=== PATIENT | female | born 1950 | race Caucasian/White ===

== ENCOUNTER 2017-04-27 07:23 | Emergency (ER) | payer MEDICARE, MEDICAID ==
[2017-04-27 07:55] LABS: BASOPHILS 0.3 % (0-2); EOSINOPHILS 0.1 % (0-7); HEMATOCRIT 39.8 % (36.0-48.0); HEMOGLOBIN 13.9 g/dL (12-16); IMMATURE GRANULOCYTES 0.3 % (0-5); LYMPHOCYTES 26.3 % (15-50); MCH 30.3 pg (26.0-34.0); MCHC 34.9 g/dL (31.0-37.0); MCV 86.7 fL (80.0-100.0); MONOCYTES 8.4 % (2-11); NEUTROPHILS 64.6 % (40-80); PLATELET COUNT 405 10x3/uL (130-400); RBC 4.59 10x6/uL (4.00-5.40); RDW 13.9 % (11.5-14.5); WBC 7.2 10x3/uL (4.8-10.8)
[2017-04-27 08:15] LABS: ALBUMIN 3.2 g/dL (3.4-5.0); ALKALINE PHOSPHATASE 190 U/L (46-116); ALT (SGPT) 42 U/L (10-68); BILIRUBIN - TOTAL 0.24 mg/dL (0.2-1.3); CALC OSMOLALITY 265 mosm/kg (275-300); CALCIUM 9.5 mg/dL (8.5-10.1); CARBON DIOXIDE 27.3 mmol/L (21.0-32.0); CHLORIDE - SERUM 96 mmol/L (98-107); CREATININE - SERUM 0.6 mg/dL (0.6-1.3); GLUCOSE 108 mg/dL (74-106); LIPASE 107 U/L (73-393); POTASSIUM - SERUM 3.3 mmol/L (3.5-5.1); PROTEIN - SERUM 8.1 g/dL (6.4-8.2); SODIUM 134 mmol/L (136-145); UREA NITROGEN 4 mg/dL (7-18); eGFR NON AFRICAN AMERICAN > 90 mL/min (90-120)
[2017-04-27 08:56] LABS: APPEARANCE CLEAR (CLEAR); BILIRUBIN NEGATIVE (NEGATIVE); COLOR YELLOW (YELLOW); GLUCOSE NEGATIVE (NEGATIVE); KETONE NEGATIVE (NEGATIVE); NITRITE NEGATIVE (NEGATIVE); PROTEIN NEGATIVE (NEGATIVE); SPECIFIC GRAVITY 1.005 (1.005-1.020); UROBILINOGEN NORMAL (NORMAL)
== END 2017-04-27 09:36 | disposition home or self-care (01) ==
LOC: D.ER 07:23
PROVIDERS: Emergency Medicine
DX: K80.50 Calculus of bile duct without cholangitis or cholecystitis without obstruction (principal); F17.200 Nicotine dependence, unspecified, uncomplicated

== ENCOUNTER → 2018-03-30 10:44 | Outpatient (CLI) | payer MEDICARE, MEDICAID ==
[~2018-03-30 10:44] MED LIST: CRESTOR5 MG; CYCLOBENZAPRINE5 MG PO; ELIQUIS2.5 MG PO; KEFLEX500 MG PO; KLONOPIN1 MG PO; MERIBIN5 MG PO; OXYCODONE HCL5 M1 PO; PEPCID40 MG PO; PROZAC40 MG PO; SYNTHROID75 MCG PO; VISTARIL50 MG PO; VITAMIN B-122500 MCG PO
[2018-04-16 10:47] VITALS: BMI 23.0
== END | disposition home or self-care (01) ==
LOC: D.US 10:44
DX: R10.9 Unspecified abdominal pain (principal)

== ENCOUNTER 2018-04-15 01:09 | Inpatient (IN) | payer MEDICARE, MEDICAID ==
[~2018-04-15] VITALS: Ht 160 cm; Wt 59.0 kg
--- NOTE | ~2018-04-15 | MORECARE ---
CASE MANAGEMENT DISCHARGE SUMMARY PATIENT: MATEO OLMEDO UNIT: [id number] ADM DATE: 04/16/18 AGE: 67 : 51 SEX: F ROOM/BED: D.2202 AUTHOR: ALAN BUSBY PHYSICIAN: REFERRING PHYSICIAN: DANILO CLARKE DO DATE OF SERVICE: 04/17/18 Discharge Plan Patient Name: MATEO OLMEDO Facility: [facility]:[place] : 1950 Planned Disposition: Home with Home Health Anticipated Discharge Date: Discharge Date: Expected LOS: Initial Reviewer: [email or web address] Initial Review Date: 04/15/2018 Generated: 04/17/18 1:25 pm Comments DCP- Discharge Planning Updated by [email or web address]: Melany Albrecht on 04/17/18 11:[address] ZACHARY WITH [facility] CALLED AND STATED THAT THEY ARE OUT OF NETWORK, DME ORDER SENT TO [facility]. WILL CONTINUE TO FOLLOW AND ASSIST WITH DC PLANNING DCP- Discharge Planning Updated by [email or web address]: Melany Albrecht on 04/17/18 8:[address] Patient Name: MATEO OLMEDO Admission Status: ER Accout number: [id number] Admission Date: 04-16-2018 : 1950 Admission Diagnosis: Attending: DANILO CLARKE Current LOS: 1 Anticipated DC Date: Planned Disposition: Home with Home Health Primary Insurance: [facility] MEDICARE SOLUTIONS Discharge Planning Comments: CM met with patient to assess discharge planning needs. Patient lives independently with her Nico where she plans to return today. Her friend Mateo has given her a walker and bedside commode. I will order her a wheelchair (per PT) prior to DC. There are 5 steps to enter in her home. She stated that she has plenty of help if needed, but would like home health, [facility] with [place] and referral sent to them. Nico will be her public transit bus driver home. CM will continue to follow and assist with DC planning Pot Room Tapper: Melany Albrecht DCPIA - Discharge Planning Initial Assessment Updated by [email or web address]: Melany Albrecht on 04/17/18 9:50 am * Is the patient Alert and Oriented? Yes * How many steps to enter\exit or inside your home? * PCP DELEON * Pharmacy BUDGET * Preadmission Environment Home with Family * ADLs Independent * Equipment Bedside Commode Rolling Walker * List name and contact numbers for known caregivers / representatives who currently or will assist patient after discharge: NICO () [phone] * Verbal permission to speak to the caregivers and representatives has been obtained from the patient. N/A * Community resources currently utilized None * Additional services required to return to the preadmission environment? Yes * Can the patient safely return to the preadmission environment? Yes * Has this patient been hospitalized within the prior 30 days at any hospital? No External Providers External Provider: [facility] Next Contact Date: Service Request Date: Service Type: Resolution: Reviewer: Comments: Last DP export: 04/17/18 10:32 a Patient Name: MATEO OLMEDO Page [phone] at 1225 All edits/amendments must be made on the electronic document DICTATION DATE: 04/17/18 1224 REHAB AID: CARRIE 04/17/18 1224 RPT#: [id number] DC DATE: STATUS: ADM IN [facility] [address] [place] [address] END OF REPORT
--- NOTE | ~2018-04-15 | OP ---
PATIENT NAME: MATEO YARBROUGH MEDICAL RECORD: [id number] :[birth year] LOCATION:D.MS [id number] ADMISSION DATE:04/15/18 SURGEON: DANILO CLARKE DO DATE OF OPERATION: 04/15/2018 PREOPERATIVE DIAGNOSIS: Right tibial shaft and fibula fracture, closed. POSTOPERATIVE DIAGNOSES: Right tibial shaft and fibula fracture, closed. SURGEON: Danilo Clarke DO INDICATIONS: Ms. Yarbrough is a 67-year-old female who fell over a coffee table last night where she fractured her tibia and her fibula. She was taken to the ER and seen to have that fracture. She does smoke. I informed her that due to her smoking that she is at risk for nonunion for this fracture and she voiced understanding that she should quit smoking. Also informed of the risks and benefits of procedure including damage to nerves and vessels, need for further surgery, the infection, nonunion, malunion, extended amount of pain. She is okay of those risks and signed the consent. DESCRIPTION OF PROCEDURE: The patient was taken to the operative suite, laid in the supine position. The right lower extremity was prepped and draped in sterile fashion. Timeout was performed, everyone was in agreement of the correct side, site, and patient. The patient received 2 grams Ancef preoperatively. Once that was done, the Esmarch was used to exsanguinate the right lower extremity. The tourniquet was inflated to 350 mmHg and was up for 68 minutes throughout the procedure. The Esmarch was then removed and the patellar tendon been marked out. Incision began just below the patella over the patellar tendon is centered and through the skin with a 15 blade, then careful dissection was made down through the peritenon and the patellar tendon. Some of the fat pad was then removed and a starting point was gained just medial to the lateral tibial spine on AP and lateral and a guide pin was put and the starting reamer was used. The guidepin was then put down as the reduction was held and measured to be a 300 mm nail. Reaming them began at 8 and went up to 10-1/2, used a 9 mm nail. The nail was then inserted and the proximal static screws were placed through the jig and then distally the perfect circles were done; 1 AP screw and one medial to lateral screw were done. The proximal screws were placed lateral and medial. Once that was completed, the fibula was tested. The ankle was tested and externally rotated and no large displacement was seen of the fibula knowing the fracture being fixed well with a nail, no need to fix the fibula and it would cause further risk of nonunion, the tourniquet was then let down and pressure was held on the spots of bleeding. The knee was then irrigated with approximately 450 mL of normal saline and the patellar tendon was closed with 0 Vicryl in a running locking stitch and then the peritenon was closed with 2-0 Vicryl in a irpxkc-ao-zqjqv fashion and the skin was closed with 2-0 Vicryl and inverted fashion 4-0 Monocryl and then a horizontal mattress fashion. The incision for the proximal screws was closed with 2-0 Vicryl in an inverted interrupted fashion after it had been irrigated and then 4-0 Monocryl in a horizontal mattress fashion. Distally the 2 poke holes, one anterior and the medial wound was closed with 2-0 Vicryl in an inverted interrupted fashion and 4-0 Monocryl in a twoajc-fk-mmdxx fashion and the anterior one with just 4-0 Monocryl horizontal mattress. The anterior and medial wounds were closed in a OPERATIVE REPORT [id number] MATEO YARBROUGH horizontal mattress 4-0 Monocryl. The leg was then cleaned and dried and Adaptic, 4 x 4s were placed on all the incisions and ABDs were placed around the ankle. A Webril was then used to wrap the leg up above the knee and a 4 x 30 Ortho-Glass splint was placed on the leg and a 6-inch Sina was used to overwrap that. This was held while this hardened. The patient was then awakened and taken to the recovery in stable condition. ESTIMATED BLOOD LOSS: Blood loss was 50 mL proximally. COMPLICATIONS: None. TRANSINT:[id number] Voice Confirmation ID: [id number] DOCUMENT ID: [id number] DANILO CLARKE DO at 0645 CC: [id number] DICTATION DATE: 04/15/18 1328 LADLE CLEANER: 04/15/18 2325 [facility] [place] [address]
--- NOTE | ~2018-04-15 | MORECARE ---
CASE MANAGEMENT DISCHARGE SUMMARY PATIENT: MATEO OLMEDO UNIT: [id number] ADM DATE: 04/16/18 AGE: 67 : 51 SEX: F ROOM/BED: D.2202 AUTHOR: ALAN BUSBY PHYSICIAN: REFERRING PHYSICIAN: DANILO CLARKE DO DATE OF SERVICE: 04/17/18 Discharge Plan Patient Name: MATEO OLMEDO Facility: [facility]:[place] : 1950 Planned Disposition: Home with Home Health Anticipated Discharge Date: Discharge Date: Expected LOS: Initial Reviewer: [email or web address] Initial Review Date: 04/15/2018 Generated: 04/17/18 12:32 pm Comments DCP- Discharge Planning Updated by [email or web address]: Melany Albrecht on 04/17/18 8:[address] Patient Name: MATEO OLMEDO Admission Status: ER Accout number: [id number] Admission Date: 04-16-2018 : 1950 Admission Diagnosis: Attending: DANILO CLARKE Current LOS: 1 Anticipated DC Date: Planned Disposition: Home with Home Health Primary Insurance: [facility] MEDICARE SOLUTIONS Discharge Planning Comments: CM met with patient to assess discharge planning needs. Patient lives independently with her Nico where she plans to return today. Her friend Mateo has given her a walker and bedside commode. I will order her a wheelchair (per PT) prior to DC. There are 5 steps to enter in her home. She stated that she has plenty of help if needed, but would like home health, [facility] with [place] and referral sent to them. Nico will be her stake driver home. CM will continue to follow and assist with DC planning Procurement Officer: Melany Albrecht DCPIA - Discharge Planning Initial Assessment Updated by [email or web address]: Melany Albrecht on 04/17/18 9:50 am * Is the patient Alert and Oriented? Yes * How many steps to enter\exit or inside your home? * PCP DE[facility]ON * Pharmacy BUDGET * Preadmission Environment Home with Family * ADLs Independent * Equipment Bedside Commode Rolling Walker * List name and contact numbers for known caregivers / representatives who currently or will assist patient after discharge: NICO () [phone] * Verbal permission to speak to the caregivers and representatives has been obtained from the patient. N/A * Community resources currently utilized None * Additional services required to return to the preadmission environment? Yes * Can the patient safely return to the preadmission environment? Yes * Has this patient been hospitalized within the prior 30 days at any hospital? No External Providers [facility] Next Contact Date: Service Request Date: Service Type: Resolution: Reviewer: Comments: Last DP export: 04/17/18 8:58 a Patient Name: MATEO OLMEDO Page 59061 at 1132 All edits/amendments must be made on the electronic document DICTATION DATE: 04/17/18 113 RETURNS PROCESSOR: CARRIE 04/17/18 113 RPT#: [id number] DC DATE: STATUS: ADM IN [facility] [address] [place] [address] END OF REPORT
--- NOTE | ~2018-04-15 | MORECARE ---
CASE MANAGEMENT DISCHARGE SUMMARY PATIENT: MATEO OLMEDO UNIT: [id number] ADM DATE: 04/16/18 AGE: 67 : 52 SEX: F ROOM/BED: D.2202 AUTHOR: ALAN BUSBY PHYSICIAN: REFERRING PHYSICIAN: DANILO CLARKE DO DATE OF SERVICE: 04/17/18 Discharge Plan Patient Name: MATEO OLMEDO Facility: [facility]:[place] : 1950 Planned Disposition: Home with Home Health Anticipated Discharge Date: Discharge Date: Expected LOS: Initial Reviewer: [email or web address] Initial Review Date: 04/15/2018 Generated: 04/17/18 10:58 am Comments DCP- Discharge Planning Updated by [email or web address]: Melany Albrecht on 04/17/18 8:[address] Patient Name: MATEO OLMEDO Admission Status: ER Accout number: [id number] Admission Date: 04-16-2018 : 1950 Admission Diagnosis: Attending: DANILO CLARKE Current LOS: 1 Anticipated DC Date: Planned Disposition: Home with Home Health Primary Insurance: [facility] MEDICARE SOLUTIONS Discharge Planning Comments: CM met with patient to assess discharge planning needs. Patient lives independently with her Nico where she plans to return today. Her friend Mateo has given her a walker and bedside commode. I will order her a wheelchair (per PT) prior to DC. There are 5 steps to enter in her home. She stated that she has plenty of help if needed, but would like home health, [facility] with [place] and referral sent to them. Nico will be her train driver home. CM will continue to follow and assist with DC planning Manager Equipment: Melany Albrecht DCPIA - Discharge Planning Initial Assessment Updated by [id number]: Melany Albrecht on 04/17/18 9:50 am * Is the patient Alert and Oriented? Yes * How many steps to enter\exit or inside your home? * PCP DELEON * Pharmacy BUDGET * Preadmission Environment Home with Family * ADLs Independent * Equipment Bedside Commode Rolling Walker * List name and contact numbers for known caregivers / representatives who currently or will assist patient after discharge: NICO () [phone] * Verbal permission to speak to the caregivers and representatives has been obtained from the patient. N/A * Community resources currently utilized None * Additional services required to return to the preadmission environment? Yes * Can the patient safely return to the preadmission environment? Yes * Has this patient been hospitalized within the prior 30 days at any hospital? No External Providers External Provider: [facility] Next Contact Date: Service Request Date: Service Type: Resolution: Reviewer: Comments: Patient Name: MATEO OLMEDO Page 14461 at 0958 All edits/amendments must be made on the electronic document DICTATION DATE: 04/17/18957 ANTHROPOMETRIST: CARRIE 04/17/18957 RPT#: [id number] DC DATE: STATUS: ADM IN [facility] [address] [place] [address] END OF REPORT
--- NOTE | ~2018-04-15 | MORECARE ---
CASE MANAGEMENT DISCHARGE SUMMARY PATIENT: MATEO OLMEDO UNIT: [id number] ADM DATE: 04/16/18 AGE: 67 : 52 SEX: F ROOM/BED: D.2202 AUTHOR: KEHINDE,DOC PHYSICIAN: REFERRING PHYSICIAN: DANILO CLARKE DO DATE OF SERVICE: 04/18/18 Discharge Plan Patient Name: MATEO OLMEDO Facility: [facility]:[place] : 1950 Planned Disposition: Home with Home Health Anticipated Discharge Date: Discharge Date: 04/17/2018 Expected LOS: Initial Reviewer: [email or web address] Initial Review Date: 04/15/2018 Generated: 04/18/18 11:33 am Comments DCP- Discharge Planning Updated by [email or web address]: Melany Albrecht on 04/17/18 2:[address] [facility] WILL DELIVER WHEELCHAIR, PATIENT DC HOME WITH [facility] DCP- Discharge Planning Updated by [email or web address]: Melany Albrecht on 04/17/18 11:[address] ZACHARY WITH [facility] CALLED AND STATED THAT THEY ARE OUT OF NETWORK, DME ORDER SENT TO [facility]. WILL CONTINUE TO FOLLOW AND ASSIST WITH DC PLANNING DCP- Discharge Planning Updated by [email or web address]: Melany Albrecht on 04/17/18 8:[address] Patient Name: MATEO OLMEDO Admission Status: ER Accout number: [id number] Admission Date: 04-16-2018 : 1950 Admission Diagnosis: Attending: DANILO CLARKE Current LOS: 1 Anticipated DC Date: Planned Disposition: Home with Home Health Primary Insurance: [facility] MEDICARE SOLUTIONS Discharge Planning Comments: CM met with patient to assess discharge planning needs. Patient lives independently with her Nico where she plans to return today. Her friend Mateo has given her a walker and bedside commode. I will order her a wheelchair (per PT) prior to DC. There are 5 steps to enter in her home. She stated that she has plenty of help if needed, but would like home health, [facility] with [place] and referral sent to them. Nico will be her team truck driver home. CM will continue to follow and assist with DC planning Doffer: Melany Albrecht DCPIA - Discharge Planning Initial Assessment Updated by [email or web address]: Melany Albrecht on 04/17/18 9:50 am * Is the patient Alert and Oriented? Yes * How many steps to enter\exit or inside your home? * PCP ADRIENNE * Pharmacy BUDGET * Preadmission Environment Home with Family * ADLs Independent * Equipment Bedside Commode Rolling Walker * List name and contact numbers for known caregivers / representatives who currently or will assist patient after discharge: NICO () [phone] * Verbal permission to speak to the caregivers and representatives has been obtained from the patient. N/A * Community resources currently utilized None * Additional services required to return to the preadmission environment? Yes * Can the patient safely return to the preadmission environment? Yes * Has this patient been hospitalized within the prior 30 days at any hospital? No Last DP export: 04/17/18 2:50 p Patient Name: MATEO OLMEDO Page 42761 at 1033 All edits/amendments must be made on the electronic document DICTATION DATE: 04/18/18 1033 PHOTOGRAPHER MODEL: CARRIE 04/18/18 1033 RPT#: [id number] DC DATE:04/17/18 STATUS: DIS IN [facility] [address] [place] [address] END OF REPORT
--- NOTE | ~2018-04-15 | MORECARE ---
CASE MANAGEMENT DISCHARGE SUMMARY PATIENT: MATEO OLMEDO UNIT: [id number] ADM DATE: 04/16/18 AGE: 67 : 52 SEX: F ROOM/BED: D.2202 AUTHOR: KEHINDE,DOC PHYSICIAN: REFERRING PHYSICIAN: DANILO CLARKE DO DATE OF SERVICE: 04/17/18 Discharge Plan Patient Name: MATEO OLMEDO Facility: [facility]:[place] : 1950 Planned Disposition: Home with Home Health Anticipated Discharge Date: Discharge Date: 04/17/2018 Expected LOS: Initial Reviewer: [email or web address] Initial Review Date: 04/15/2018 Generated: 04/17/18 4:50 pm Comments DCP- Discharge Planning Updated by [email or web address]: Melany Albrecht on 04/17/18 2:[address] [facility] WILL DELIVER WHEELCHAIR, PATIENT DC HOME WITH [facility] DCP- Discharge Planning Updated by [id number]: Melany Albrecht on 04/17/18 11:[address] ZACHARY WITH [facility] CALLED AND STATED THAT THEY ARE OUT OF NETWORK, DME ORDER SENT TO [facility]. WILL CONTINUE TO FOLLOW AND ASSIST WITH DC PLANNING DCP- Discharge Planning Updated by [email or web address]: Melany Albrecht on 04/17/18 8:[address] Patient Name: MATEO OLMEDO Admission Status: ER Accout number: [id number] Admission Date: 04-16-2018 : 1950 Admission Diagnosis: Attending: DANILO CLARKE Current LOS: 1 Anticipated DC Date: Planned Disposition: Home with Home Health Primary Insurance: [facility] MEDICARE SOLUTIONS Discharge Planning Comments: CM met with patient to assess discharge planning needs. Patient lives independently with her Nico where she plans to return today. Her friend Mateo has given her a walker and bedside commode. I will order her a wheelchair (per PT) prior to DC. There are 5 steps to enter in her home. She stated that she has plenty of help if needed, but would like home health, [facility] with [place] and referral sent to them. Nico will be her professional driver home. CM will continue to follow and assist with DC planning Sand Cutter Operator: Melany Albrecht DCPIA - Discharge Planning Initial Assessment Updated by [email or web address]: Melany Albrecht on 04/17/18 9:50 am * Is the patient Alert and Oriented? Yes * How many steps to enter\exit or inside your home? * PCP ADRIENNE * Pharmacy BUDGET * Preadmission Environment Home with Family * ADLs Independent * Equipment Bedside Commode Rolling Walker * List name and contact numbers for known caregivers / representatives who currently or will assist patient after discharge: NICO () [phone] * Verbal permission to speak to the caregivers and representatives has been obtained from the patient. N/A * Community resources currently utilized None * Additional services required to return to the preadmission environment? Yes * Can the patient safely return to the preadmission environment? Yes * Has this patient been hospitalized within the prior 30 days at any hospital? No Last DP export: 04/17/18 11:25 a Patient Name: MAETO OLMEDO Page 43589 at 1550 All edits/amendments must be made on the electronic document DICTATION DATE: 04/17/18 1550 CRIMINAL ATTORNEY: CARRIE 04/17/18 1550 RPT#: [id number] DC DATE:04/17/18 STATUS: DIS IN [facility] [address] [place] [address] END OF REPORT
[2018-04-15] MEDS ORDERED: PROZAC40 MG PO (01:13)
[2018-04-15] MEDS ORDERED: SYNTHROID75 MCG PO (01:13)
[2018-04-15] MEDS ORDERED: PEPCID40 MG PO (01:14)
[2018-04-15] MEDS ORDERED: CYCLOBENZAPRINE5 MG PO (01:14)
[2018-04-15] MEDS ORDERED: CRESTOR5 MG (01:14)
[2018-04-15 02:34] LABS: BASOPHILS 0.1 % (0-2); EOSINOPHILS 0 % (0-7); HEMATOCRIT 36.8 % (36.0-48.0); HEMOGLOBIN 12.7 g/dL (12-16); IMMATURE GRANULOCYTES 0.2 % (0-5); MCH 30.2 pg (26.0-34.0); MCHC 34.5 g/dL (31.0-37.0); MCV 87.6 fL (80.0-100.0); MEAN PLATELET VOLUME 9.4 fL (7.4-10.4); MONOCYTES 4.3 % (2-11); NEUTROPHILS 78.4 % (40-80); RDW 13.7 % (11.5-14.5); WBC 13.4 10x3/uL (4.8-10.8)
[2018-04-15 02:38] LABS: PLATELET COUNT 270 10x3/uL (130-400)
[2018-04-15 02:47] LABS: INR 0.92 (0.85-1.17); PROTIME 11.9 SECONDS (11.6-15.0)
[2018-04-15 02:49] LABS: ALBUMIN 3.5 g/dL (3.4-5.0); ALKALINE PHOSPHATASE 124 U/L (46-116); ALT (SGPT) 35 U/L (10-68); CALC OSMOLALITY 267 mosm/kg (275-300); CALCIUM 8.8 mg/dL (8.5-10.1); CARBON DIOXIDE 26.8 mmol/L (21.0-32.0); CHLORIDE - SERUM 97 mmol/L (98-107); CREATININE - SERUM 0.4 mg/dL (0.6-1.3); GLUCOSE 134 mg/dL (74-106); PROTEIN - SERUM 7.7 g/dL (6.4-8.2); SODIUM 134 mmol/L (136-145); UREA NITROGEN 7 mg/dL (7-18); eGFR NON AFRICAN AMERICAN > 90 mL/min (90-120)
[2018-04-15 02:51] LABS: BILIRUBIN - TOTAL 0.09 mg/dL (0.2-1.3)
[2018-04-15 04:00] VITALS: BP 154/70
[2018-04-15 04:21] VITALS: BP 154/70; BMI 23.0
[2018-04-15] MEDS ORDERED: KLONOPIN1 MG PO (04:31)
[2018-04-15] MEDS ORDERED: MERIBIN5 MG PO (04:32)
[2018-04-15] MEDS ORDERED: VITAMIN B-122500 MCG PO (04:33)
[2018-04-15 09:31] VITALS: BP 155/71
[2018-04-15 14:03] VITALS: BP 131/64
[2018-04-15 20:00] VITALS: BP 138/53
[2018-04-16] VITALS: BP 131/75
[2018-04-16 04:00] VITALS: BP 126/69
[2018-04-16 05:26] LABS: BASOPHILS 0 % (0-2); EOSINOPHILS 0 % (0-7); HEMATOCRIT 35.3 % (36.0-48.0); IMMATURE GRANULOCYTES 0.3 % (0-5); MCH 30.3 pg (26.0-34.0); MCV 89.1 fL (80.0-100.0); MEAN PLATELET VOLUME 9.9 fL (7.4-10.4); MONOCYTES 6.3 % (2-11); NEUTROPHILS 86.4 % (40-80); PLATELET COUNT 268 10x3/uL (130-400); RBC 3.96 10x6/uL (4.00-5.40); RDW 14.2 % (11.5-14.5); WBC 15.9 10x3/uL (4.8-10.8)
[2018-04-16 05:43] LABS: CALC OSMOLALITY 276 mosm/kg (275-300); CALCIUM 8.6 mg/dL (8.5-10.1); CARBON DIOXIDE 26.7 mmol/L (21.0-32.0); CHLORIDE - SERUM 102 mmol/L (98-107); CREATININE - SERUM 0.6 mg/dL (0.6-1.3); GLUCOSE 124 mg/dL (74-106); SODIUM 139 mmol/L (136-145); UREA NITROGEN 6 mg/dL (7-18)
[2018-04-16 05:44] LABS: eGFR NON AFRICAN AMERICAN > 90 mL/min (90-120)
[2018-04-16 08:30] VITALS: BP 169/64
[2018-04-16 10:47] VITALS: Ht 160 cm; Wt 59.0 kg
[2018-04-16 13:18] VITALS: BP 147/60
[2018-04-16 16:38] VITALS: BP 155/76
[2018-04-16 20:00] VITALS: BP 126/81
[2018-04-17] MEDS ORDERED: VISTARIL50 MG PO (07:03)
[2018-04-17] MEDS ORDERED: ELIQUIS2.5 MG PO (07:03)
[2018-04-17] MEDS ORDERED: OXYCODONE HCL5 M1 PO (07:04)
[2018-04-17] MEDS ORDERED: KEFLEX500 MG PO (07:05)
[2018-04-17 08:19] VITALS: BP 136/62
[2018-04-17 11:39] VITALS: BP 127/49
== END 2018-04-17 15:07 | disposition home health service (06) | DRG 494 ==
LOC: D.ER 01:09 → OBSVTIME 03:12 → D.MS 03:12
PROVIDERS: Family Medicine; Orthopaedic Surgery
PROC: 0QSG06Z Reposition Right Tibia with Intramedullary Internal Fixation Device, Open Approach (ICD-10-PCS; 2018-04-15)
PROC: 0QSJ06Z Reposition Right Fibula with Intramedullary Internal Fixation Device, Open Approach (ICD-10-PCS; principal; 2018-04-15 10:21)
DX: S82.201A Unspecified fracture of shaft of right tibia, initial encounter for closed fracture (principal); S82.401A Unspecified fracture of shaft of right fibula, initial encounter for closed fracture; W01.0XXA Fall on same level from slipping, tripping and stumbling without subsequent striking against object, initial encounter; J44.9 Chronic obstructive pulmonary disease, unspecified; K21.9 Gastro-esophageal reflux disease without esophagitis; F32.9 Major depressive disorder, single episode, unspecified; F41.9 Anxiety disorder, unspecified; Z72.0 Tobacco use

== ENCOUNTER 2018-05-12 12:47 | Emergency (ER) | payer MEDICARE, MEDICAID ==
[~2018-05-12] VITALS: Ht 160 cm; Wt 59.1 kg
[2018-05-12 13:04] VITALS: Ht 160 cm; Wt 59.1 kg
[2018-05-12] MEDS ORDERED: CYCLOBENZAPRINE10 MG PO (15:49)
[2018-05-12 16:09] VITALS: BP 178/78
== END 2018-05-12 16:10 | disposition home or self-care (01) ==
LOC: D.ER 12:47
DX: G89.18 Other acute postprocedural pain (principal); M79.661 Pain in right lower leg; W18.30XA Fall on same level, unspecified, initial encounter; Y93.89 Activity, other specified; Y92.019 Unspecified place in single-family (private) house as the place of occurrence of the external cause; J44.9 Chronic obstructive pulmonary disease, unspecified; F17.200 Nicotine dependence, unspecified, uncomplicated

== ENCOUNTER → 2019-07-08 15:34 | Outpatient (CLI) | payer MEDICARE, MEDICAID ==
[2018-05-12 13:04] VITALS: BMI 23.0
== END | disposition home or self-care (01) ==
LOC: D.MAMMO 15:15
PROVIDERS: ATTEND Family Medicine
DX: Z12.31 Encounter for screening mammogram for malignant neoplasm of breast (principal)

== ENCOUNTER 2019-12-05 05:50 | Day surgery (SDC) | payer MEDICARE, MEDICAID ==
[2019-12-02 09:48] LABS: HEMATOCRIT 41.3 % (36.0-48.0); HEMOGLOBIN 13.6 g/dL (12-16); MCH 30.1 pg (26.0-34.0); MCHC 32.9 g/dL (31.0-37.0); MCV 91.4 fL (80.0-100.0); MEAN PLATELET VOLUME 9.4 fL (7.4-10.4); RBC 4.52 10x6/uL (4.00-5.40); RDW 14.1 % (11.5-14.5); WBC 8.2 10x3/uL (4.8-10.8)
--- NOTE | 2019-12-02 10:18 | NUR ---
HEIN: T 97/6 BP 124/76 O2SAT 97% P78 R20
[~2019-12-05] VITALS: Ht 160 cm; Wt 57.2 kg
[~2019-12-05 05:50] MED LIST changes: +CYCLOBENZAPRINE10 MG PO; +HYDROCODON-ACE1 EA10 PO; +LIPITOR20 MG PO; +MELATONIN 3 MG1 TAB PO; +MULTI-DAY VITAM1 TAB PO; +NIACIN100 MG PO; +VITAMIN C500 M1 PO
[2019-12-05 06:23] VITALS: BP 89/46; Ht 160 cm; Wt 57.2 kg
[2019-12-05] MEDS ORDERED: HYDROCODON-ACE1 EA10 PO (08:29)
[2019-12-05] MEDS ORDERED: DILAUDID4 MG PO (08:53)
--- NOTE | 2019-12-05 09:26 | NUR ---
0900 DR SMITH AT BEDSIDE AND PT IS TELLING HIM THAT [facility] DOES NOT HELP HER PAIN. SHE HAS BEEN TAKING THIS MED AT HOME. PT IS ASKING FOR SOMETHING STRONGER. NEW PAIN MEDICATION ORDER RECEIVED.
--- NOTE | 2019-12-05 10:58 | NUR ---
0935 IV DC'D. CATHETER TIP INTACT. BLEEDING CEASED AFTER HOLDING PRESSURE. BANDAID APPLIED. DISCHARGE INSTRUCTIONS REVIEWED WITH PT AND HER . BOTH VOICE UNDERSTANDING OF INSTRUCTIONS. PT REPORTS THAT SHE HAS NOT PAIN "AT ALL" IN HER LEFT HAND.
--- NOTE | 2019-12-07 09:12 | OP ---
PATIENT NAME: MATEO OLMEDO MEDICAL RECORD: [id number] :[birth year] LOCATION:[facility] ADMISSION DATE: SURGEON: POPPY SMITH MD DATE OF OPERATION: 12/05/2019 PREOPERATIVE DIAGNOSIS: Trigger thumb, left thumb. POSTOPERATIVE DIAGNOSIS: Trigger thumb, left thumb. PROCEDURE: A1 eli release of the left trigger thumb. SURGEON: Poppy Smith MD ANESTHESIA: General. INTRAOPERATIVE COMPLICATIONS: None. SUMMARY OF PATHOLOGIC FINDINGS: The patient has a very tight A1 eli of the trigger. There were some attritional changes of the thumb flexor mechanism; however, they were not torn its entirety. OPERATIVE SUMMARY IN DETAIL: After obtaining the appropriate preoperative orthopedic surgery consent as well as anesthetic consultation, evaluation and clearance, the patient was brought to the operating room and placed on the operating table in a supine position. After adequate general laryngeal mask airway was administered, the patient's left upper extremity was prepared with a tourniquet. Left upper extremity was then prepped and draped in routine sterile fashion. The arm was elevated and exsanguinated, tourniquet inflated to 250 mmHg. Appropriate timeout was taken and agreed upon by all given the patient's unique identifiers. At this point, an incision was made in the thumb base directly over the A1 eli. It was taken down to the level of the A1 eli. Digital nerves were then retracted gently and protected throughout the entire case. The A1 eli was released in its entirety. Thumb flexor tendon was inspected and found to be roughened but not torn. It was inspected and found to be roughened but not torn. Having completed this, the wound was irrigated and closed with 4-0 Prolene in routine interrupted fashion. The area was locally infiltrated with 0.25% Marcaine plain. Sterile dressings were applied. Tourniquet was deflated. The patient was awakened, taken to recovery room in stable condition. All final needle and sponge counts were correct. TRANSINT:[id number] Voice Confirmation ID: [id number] DOCUMENT ID: [id number] POPPY SMITH MD at 0912 CC: [id number] DICTATION DATE: 12/06/19 1111 SWITCHBOARD WIRE WORKER HELPER: 12/06/19 2131 [facility] 12/05/19 [facility] [address] [place] [address]
== END 2019-12-05 09:53 | disposition home or self-care (01) ==
LOC: D.OPS 05:50 → D.PAN 08:00 → D.OPS 08:00
PROVIDERS: Anesthesiology; ATTEND Orthopaedic Surgery
DX: M65.312 Trigger thumb, left thumb (principal); J44.9 Chronic obstructive pulmonary disease, unspecified; K21.9 Gastro-esophageal reflux disease without esophagitis; E78.2 Mixed hyperlipidemia; E03.9 Hypothyroidism, unspecified; F17.200 Nicotine dependence, unspecified, uncomplicated